=== PATIENT | male | born 1950 | race Caucasian/White ===

== ENCOUNTER → 2018-10-22 | Outpatient (CLI) | payer BC ==
[~2018-10-22] VITALS: Ht 160 cm; Wt 62.6 kg
[~2018-10-22] MED LIST: ATOR40TA71 PO; BECL8.7A5 IH; CHOL100040 PO; FLUT16H NASAL; LEVO75TA10 PO; MULT1TAB70 PO; REGADENOSON 0.4 MG/5 ML PF SYG IVP SCH
== END | disposition home or self-care (01) ==
LOC: SHCH 08:51
PROVIDERS: ATTEND Internal Medicine Cardiovascular Disease
DX: I25.10 Atherosclerotic heart disease of native coronary artery without angina pectoris (principal)
CPT/HCPCS: 78452; 93017; 96374; A9500 ×2; J2785

== ENCOUNTER → 2018-11-29 | Outpatient (CLI) | payer BC ==
[~2018-11-29] MED LIST changes: -REGADENOSON 0.4 MG/5 ML PF SYG IVP SCH
== END | disposition home or self-care (01) ==
LOC: RAH 13:25
PROVIDERS: ATTEND Internal Medicine
DX: J15.20 Pneumonia due to staphylococcus, unspecified (principal); R91.8 Other nonspecific abnormal finding of lung field; J45.901 Unspecified asthma with (acute) exacerbation
CPT/HCPCS: 71250